=== PATIENT | female | born 1950 | race Caucasian/White ===

== ENCOUNTER 2016-10-08 21:39 | Inpatient (IN) | payer OTHER, BC ==
[~2016-10-08] VITALS: Ht 154.9 cm; Wt 82.7 kg
[~2016-10-08 21:39] MED LIST: B-COMPLEX-VITA1 EACH PO; CLARITIN10 M3 PO; LIPITOR40 MG PO; PRINZIDE 10-121 EACH PO; WOMEN'S DAILY1 EAC2 PO
[2016-10-09] MEDS ORDERED: FLONASE ALLERG9.9 ML BOTH NARES (10:29)
[2016-10-09 10:35] VITALS: BP 141/84
[2016-10-09 15:21] VITALS: BP 123/57
[2016-10-09 17:42] LABS: MCH 28.4 PG (29.0-34.0); MCHC 32.6 G/DL (30.0-36.0); MEAN PLAT.VOLUME 10.3 uM^3 (9.5-12.4); PLATELET COUNT 339 K/uL (156-360); RBC DIS.WIDTH-CV 14.9 % (11.8-14.6); RBC DIS.WIDTH-SD 47.1 % (39-53); RED BLOOD COUNT 3.91 M/uL (3.80-5.20)
[2016-10-09 18:05] LABS: ANION GAP 9 MEQ/L (2-14); CHLORIDE 105 MEQ/L (99-109); GFR ESTIMATE (CALCULATED) > 59 mL/min/; POTASSIUM 3.3 MEQ/L (3.7-5.4); SAMPLE HEMOLYSIS CHECK 0; SAMPLE ICTERIC CHECK 0; SAMPLE LIPEMIA CHECK 0; SODIUM 142 MEQ/L (136-147); UREA NITROGEN (BUN) 11 mg/dL (9-23)
[2016-10-09 18:40] LABS: GLUCOSE 192 mg/dL (70-99)
[2016-10-09 19:17] VITALS: BP 123/58
[2016-10-09 23:41] VITALS: BP 111/55
[2016-10-10 04:23] VITALS: BP 113/58
[2016-10-10 07:33] VITALS: BP 125/60
[2016-10-10 08:03] LABS: HEMATOCRIT 28.9 % (36.0-46.0); MCH 28.1 PG (29.0-34.0); MCHC 32.5 G/DL (30.0-36.0); MCV 86.5 FL (83-99); MEAN PLAT.VOLUME 10.6 uM^3 (9.5-12.4); PLATELET COUNT 310 K/uL (156-360); RBC DIS.WIDTH-CV 14.9 % (11.8-14.6); RBC DIS.WIDTH-SD 47.5 % (39-53); RED BLOOD COUNT 3.34 M/uL (3.80-5.20); WHITE BLOOD COUNT 16.3 K/uL (4.1-10.2)
[2016-10-10 09:55] LABS: ANION GAP 8 MEQ/L (2-14); CHLORIDE 103 MEQ/L (99-109); GFR ESTIMATE (CALCULATED) > 59 mL/min/; GLUCOSE 145 mg/dL (70-99); POTASSIUM 3.6 MEQ/L (3.7-5.4); SAMPLE HEMOLYSIS CHECK 0; SAMPLE ICTERIC CHECK 0; SAMPLE LIPEMIA CHECK 0; SODIUM 138 MEQ/L (136-147); UREA NITROGEN (BUN) 10 mg/dL (9-23)
[2016-10-10 11:31] VITALS: BP 112/59
[2016-10-10 15:24] VITALS: BP 130/56
[2016-10-10 20:30] VITALS: BP 131/60
[2016-10-11 00:03] VITALS: BP 122/68
[2016-10-11 04:27] VITALS: BP 156/72
[2016-10-11 07:19] VITALS: BP 144/68
[2016-10-11 07:44] LABS: HEMATOCRIT 33.6 % (36.0-46.0); MCH 27.2 PG (29.0-34.0); MCHC 31.8 G/DL (30.0-36.0); MCV 85.5 FL (83-99); MEAN PLAT.VOLUME 10.2 uM^3 (9.5-12.4); PLATELET COUNT 342 K/uL (156-360); RBC DIS.WIDTH-CV 14.9 % (11.8-14.6); RBC DIS.WIDTH-SD 46.6 % (39-53); RED BLOOD COUNT 3.93 M/uL (3.80-5.20)
[2016-10-11 08:00] LABS: ANION GAP 8 MEQ/L (2-14); CHLORIDE 106 MEQ/L (99-109); GFR ESTIMATE (CALCULATED) > 59 mL/min/; POTASSIUM 3.5 MEQ/L (3.7-5.4); SAMPLE HEMOLYSIS CHECK 0; SAMPLE ICTERIC CHECK 0; SAMPLE LIPEMIA CHECK 0; SODIUM 144 MEQ/L (136-147); UREA NITROGEN (BUN) 10 mg/dL (9-23)
[2016-10-11 08:03] LABS: GLUCOSE 104 mg/dL (70-99)
[2016-10-11] MEDS ORDERED: TRAMADOL HCL50 MG PO (08:53)
== END 2016-10-11 09:55 | disposition home or self-care (01) | DRG 746 ==
LOC: ENRESERV 21:39 → 2SOUTH 10-09 09:35 → ENRESERV 10-09 15:00 → 2EASTP 10-09 15:19
PROVIDERS: Obstetrics & Gynecology Gynecologic Oncology
PROC: 0UTM0ZZ Resection of Vulva, Open Approach (ICD-10-PCS; principal; 2016-10-09)
DX: C51.2 Malignant neoplasm of clitoris (principal); C79.19 Secondary malignant neoplasm of other urinary organs; I10 Essential (primary) hypertension; E78.5 Hyperlipidemia, unspecified; Z80.6 Family history of leukemia; Z82.49 Family history of ischemic heart disease and other diseases of the circulatory system
CPT/HCPCS: 36415; 80048; 80053; 85027; 86850; 86900; 86901; 86920; 88305; 88307; 94640; J0690; J1100; J1580; J1650; J1885; J2250; J2405; J2710; J2765; J3010; J7050; S0030